=== PATIENT | male | born 1995 | race Caucasian/White ===

== ENCOUNTER 2018-02-15 13:30 | Emergency (ER) | payer OTHER ==
[2018-02-15 13:38] VITALS: BP 136/85
--- NOTE | 2018-02-15 14:07 | RADIOLOGY REPORT (SQ) ---
EXAM DESCRIPTION: HAND LEFT 3 VIEWS COMPLETED DATE/TIME: 02/15/2018 1:49 pm REASON FOR STUDY: left hand COMPARISON: None. EXAM PARAMETERS: NUMBER OF VIEWS: Three views. TECHNIQUE: AP, lateral and oblique radiographic images acquired of the left hand. LIMITATIONS: None. FINDINGS: MINERALIZATION: Normal. BONES: Crush injury distal tuft, 3rd finger distal phalanx. JOINTS: No effusions. SOFT TISSUES: Laceration with radiopaque debris, dorsal aspect of the 3rd finger at the DIP joint. OTHER: No other significant finding. IMPRESSION: Laceration with debris, dorsal aspect 3rd finger at the DIP joint. Crush injury with tuft fracture, 3rd finger distal phalanx tuft TECHNICAL DOCUMENTATION: JOB ID: [id number] [employer]- All Rights Reserved Reading location - IP/workstation name: [email or web address]
[2018-02-15] MEDS ORDERED: AMPICILLIN SOD/SULBACTAM 3 GM VIAL IV ONE (14:50)
--- NOTE | 2018-02-15 14:51 | ER Document Report ---
ED Medical Screen (RME) - General Chief Complaint: Hand Injury Stated Complaint: LEFT FINGER PAIN Time Seen by Provider: 02/15/18 14:46 TRAVEL OUTSIDE OF THE [place]. IN LAST 30 DAYS: No - HPI Notes: 02/15/18 14:50 Laceration smashed finger between 2 rocks - Related Data Allergies/Adverse Reactions: No Known Allergies Allergy (Unverified 02/15/18 13:31) Past Medical History - Social History Chew tobacco use (# tins/day): No Frequency of alcohol use: None Drug Abuse: None Renal/ Medical History: Denies: Hx Peritoneal Dialysis Review of Systems - Review of Systems Skin: Other - Crush injury Physical Exam - Vital signs Vitals: Temp Pulse Resp BP Pulse Ox 97.6 F 64 16 136/85 H 99 02/15/18 13:37 02/15/18 13:37 02/15/18 13:37 02/15/18 13:37 02/15/18 13:37 - Respiratory Respiratory status: No respiratory distress Chest status: Nontender Breath sounds: Normal Chest palpation: Normal Course - Vital Signs Vital signs: Temp Pulse Resp BP Pulse Ox 97.6 F 64 16 136/85 H 99 02/15/18 13:37 02/15/18 13:37 02/15/18 13:37 02/15/18 13:37 02/15/18 13:37
[2018-02-15] MEDS ORDERED: LIDOCAINE 2% VISCOUS SOLN 20 ML UDCUP PO ONE (15:07)
[2018-02-15] MEDS ORDERED: LIDOCAINE 2% INJ (20 MG/ML) 20 ML MDV INJ ONE ×2 (15:15→15:24)
--- NOTE | 2018-02-15 15:23 | ER Document Report ---
ED General - General Mode of Arrival: Ambulatory Information source: Patient TRAVEL OUTSIDE OF THE [place]. IN LAST 30 DAYS: No <FABIAN CHAN - Last Filed: 02/16/18 01:18> <SASCHA GEORGES - Last Filed: 02/16/18 14:32> - General Chief Complaint: Hand Injury Stated Complaint: LEFT FINGER PAIN Time Seen by Provider: 02/15/18 14:46 Notes: Patient is a 22-year-old male presenting to the emergency department complaining of left third digit pain and a laceration onset today. Patient states he was lifting cement blocks while at work and one slipped and crushed his left 3rd digit. Patient is right handed. Patient's last tetanus was approximately fall 2014. (FABIAN CHAN) - Related Data Allergies/Adverse Reactions: No Known Allergies Allergy (Unverified 02/15/18 13:31) Past Medical History - General Information source: Patient - Social History Smoking Status: Current Every Day Smoker Chew tobacco use (# tins/day): No Frequency of alcohol use: None Drug Abuse: None Family History: Reviewed & Not Pertinent Patient has suicidal ideation: No Patient has homicidal ideation: No <FABIAN CHAN - Last Filed: 02/16/18 01:18> Review of Systems - Review of Systems Constitutional: No symptoms reported EENT: No symptoms reported Cardiovascular: No symptoms reported Respiratory: No symptoms reported Gastrointestinal: No symptoms reported Genitourinary: No symptoms reported Male Genitourinary: No symptoms reported Musculoskeletal: See HPI Skin: See HPI Hematologic/Lymphatic: No symptoms reported Neurological/Psychological: No symptoms reported -: Yes All other systems reviewed and negative <FABIAN CHAN - Last Filed: 02/16/18 01:18> Physical Exam <FABIAN CHAN - Last Filed: 02/16/18 01:18> <SASCHA GEORGES - Last Filed: 02/16/18 14:32> - Vital signs Vitals: Temp Pulse Resp BP Pulse Ox 97.6 F 64 16 136/85 H 99 02/15/18 13:37 02/15/18 13:37 02/15/18 13:37 02/15/18 13:37 02/15/18 13:37 - Notes Notes: GENERAL: Alert, interacts well. No acute distress. HEAD: Normocephalic, atraumatic. EYES: Pupils equal, round, and reactive to light. Extraocular movements intact. ENT: Oral mucosa moist, tongue midline. NECK: Full range of motion. Supple. Trachea midline. LUNGS: No respiratory distress. EXTREMITIES: Moves all 4 extremities spontaneously. 2in jagged laceration to the dorsal aspect of left third digit from nail bed to the PIP joint,tendon disruption on dorsal aspect. 1/2in jagged laceration on the volar aspect to the left 3rd digit, near DIP joint. Sensations grossly intact. NEUROLOGICAL: Alert and oriented x3. Normal speech. PSYCH: Normal affect, normal mood. SKIN: Warm, dry. (FABIAN CHAN) Course - Laboratory Result Diagrams: 02/15/18 15:27 02/15/18 15:27 - EKG Interpretation by Pa EKG shows normal: Sinus rhythm Rate: Normal - 60 bpm Rhythm: NSR <FABIAN CHAN - Last Filed: 02/16/18 01:18> - Laboratory Result Diagrams: 02/15/18 15:27 02/15/18 15:27 <SASCHA GEORGES - Last Filed: 02/16/18 14:32> - Re-evaluation Re-evalutation: 02/15/18 15:[address] Valverde who states he will come and evaluate the patient. Advised to give patient antibiotics and place 3rd digit in wet saline gauze. 02/15/18 15:30 Began to inject lidocaine to properly soak the left third digit. (FABIAN CHAN) 02/15/18 17:04 Dr. Valverde evaluated patient was going to bring him into the OR for washout and pinning the patient had eaten at noon today so surgery will be deferred to tomorrow. He advised to provide patient 10 days of Augmentin and patient is a follow-up at surgical center at approximately 3 PM tomorrow. (SASCHA GEORGES) - Vital Signs Vital signs: Temp Pulse Resp BP Pulse Ox 97.6 F 64 16 136/85 H 99 02/15/18 13:37 02/15/18 13:37 02/15/18 13:37 02/15/18 13:37 02/15/18 13:37 - Laboratory Laboratory results interpreted by me: 09/24/18 09/24/18 15:27 15:27 WBC 12.9 H Seg Neutrophils % 85.4 H Lymphocytes % 7.5 L Absolute Neutrophils 11.0 H Carbon Dioxide 31 H - EKG Interpretation by Me Additional EKG results interpreted by me: 02/15/18 17:20 Performed at 1716. Rate 60. Normal sinus rhythm. Normal intervals. (FABIAN CHAN) Discharge <FABIAN CHAN - Last Filed: 02/16/18 01:18> <SASCHA GEORGES - Last Filed: 02/16/18 14:32> - Discharge Clinical Impression: Crushed finger, distal Qualifiers: Encounter type: initial encounter Qualified Code(s): S67.10XA - Crushing injury of unspecified finger(s), initial encounter Condition: Fair Disposition: HOME, SELF-CARE Additional Instructions: Please follow-up at surgical center tomorrow per Dr. balderrama's directions. Please start taking antibiotics provided tomorrow morning. Scribe Attestation: 02/16/18 14:32 I personally performed the services described in the documentation, reviewed and edited the documentation which was dictated to the scribe in my presence, and it accurately records my words and actions. (SASCHA GEORGES)
[2018-02-15] MEDS ORDERED: OXYCODONE-ACETAMINOPHEN 5-325 MG TABLET PO ONE (15:25)
[2018-02-15 15:41] LABS: ABSOLUTE MONOCYTES (AUTO) 0.9 10^3/uL (0.1-1.4); BASOPHILS % (AUTO) 0.2 % (0-2); EOSINOPHILS % (AUTO) 0.2 % (0-6); HEMATOCRIT 43.9 % (37.9-51.0); HEMOGLOBIN 14.9 g/dL (13.5-17.0); LYMPHOCYTES % (AUTO) 7.5 % (13-45); MEAN CORPUSCULAR HEMOGLOBIN 30.3 pg (27.0-33.4); MEAN CORPUSCULAR HGB CONC 33.9 g/dL (32.0-36.0); MEAN CORPUSCULAR VOLUME 89 fl (80-97); MONOCYTES % (AUTO) 6.7 % (3-13); PLATELET COUNT 164 10^3/uL (150-450); RED BLOOD COUNT 4.91 10^6/uL (4.35-5.55); SEGMENTED NEUTROPHILS % (AUTO) 85.4 % (42-78); TOTAL CELLS COUNTED % (AUTO) 100 %; WHITE BLOOD COUNT 12.9 10^3/uL (4.0-10.5)
[2018-02-15 16:01] LABS: ANION GAP 7 (5-19); BLOOD UREA NITROGEN 14 mg/dL (7-20); CALCIUM 9.4 mg/dL (8.4-10.2); CARBON DIOXIDE 31 mmol/L (22-30); CHLORIDE 99 mmol/L (98-107); GLUCOSE 86 mg/dL (75-110); POTASSIUM 3.7 mmol/L (3.6-5.0)
[2018-02-15] MEDS ORDERED: HYDROCODONE/ACETAMINOPHEN 5-325 MG (6 TAB/ER DISP) PO PRN (17:07)
--- NOTE | 2018-02-15 17:13 | PDOC H&P ---
History of Present Illness Patient complains of: Left middle finger injury History of Present Illness: WENDY MUNOZ is a 22 year old male who was working when he sustained a crush injury to his left middle finger when a cinder block fell earlier this afternoon. Patient had notable pain and bleeding and a wound. He was brought to emergency room where the area was anesthetized and irrigated. Patient states the pain was worse with motion. Did have some numbness on the tip of the finger. States pain is worse with motion. Current pain 2/10. Social History Smoking Status: Current Every Day Smoker Family History Parental Family History Reviewed: No Children Family History Reviewed: No Sibling(s) Family History Reviewed.: No Medication/Allergy Home Medications: Amox Tr/Potassium Clavulanate [Augmentin 875-125 Tablet] 1 tab PO BID 10 Days tablet 02/15/18 Allergies/Adverse Reactions: No Known Allergies Allergy (Unverified 02/15/18 13:31) Review of Systems Constitutional: ABSENT: chills, fever(s), headache(s), weight gain, weight loss Eyes: ABSENT: visual disturbances Ears: ABSENT: hearing changes Cardiovascular: ABSENT: chest pain, dyspnea on exertion, edema, orthropnea, palpitations Respiratory: ABSENT: cough, hemoptysis Gastrointestinal: ABSENT: abdominal pain, constipation, diarrhea, hematemesis, hematochezia, nausea, vomiting Genitourinary: ABSENT: dysuria, hematuria Musculoskeletal: PRESENT: as per HPI Integumentary: ABSENT: rash, wounds Neurological: ABSENT: abnormal gait, abnormal speech, confusion, dizziness, focal weakness, syncope Psychiatric: ABSENT: anxiety, depression, homidical ideation, suicidal ideation Endocrine: ABSENT: cold intolerance, heat intolerance, menstrual abnormalities, polydipsia, polyuria Hematologic/Lymphatic: ABSENT: easy bleeding, easy bruising, lymphadenopathy Physical Exam Vital Signs: Temp Pulse Resp BP Pulse Ox 97.6 F 64 16 136/85 H 99 02/15/18 13:37 02/15/18 13:37 02/15/18 13:37 02/15/18 13:37 02/15/18 13:37 Intake & Output 02/14/18 02/15/18 02/16/18 06:59 06:59 06:59 Weight 81.3 kg General appearance: PRESENT: no acute distress, well-developed, well-nourished Head exam: PRESENT: atraumatic, normocephalic Eye exam: PRESENT: conjunctiva pink, EOMI, PERRLA. ABSENT: scleral icterus Ear exam: PRESENT: normal external ear exam Mouth exam: PRESENT: moist, tongue midline Neck exam: PRESENT: full ROM. ABSENT: carotid bruit, JVD, lymphadenopathy, thyromegaly Cardiovascular exam: PRESENT: RRR. ABSENT: diastolic murmur, rubs, systolic murmur Pulses: PRESENT: normal dorsalis pedis pul, +2 pedal pulses bilateral Vascular exam: PRESENT: normal capillary refill GI/Abdominal exam: PRESENT: normal bowel sounds, soft. ABSENT: distended, guarding, mass, organolmegaly, rebound, tenderness Rectal exam: PRESENT: deferred Musculoskeletal exam: PRESENT: other - Left index finger: Wound along the volar aspect of the DIP joint. Dorsal wound along the DIP joint with evidence of extensor tendon involvement. Patient lacks extension of the DIP joint. Intact flexion of the DIP joint. Given original digit block unable to assess neurovascular status. Cap refill less than 2 seconds. No evidence of exposed bone. No gross contamination appreciated. Neurological exam: PRESENT: alert, awake, oriented to person, oriented to place , oriented to time, oriented to situation, CN II-XII grossly intact. ABSENT: motor sensory deficit Psychiatric exam: PRESENT: appropriate affect, normal mood. ABSENT: homicidal ideation, suicidal ideation Skin exam: PRESENT: dry, intact, warm. ABSENT: cyanosis, rash Results Laboratory Results: 02/15/18 15:27 02/15/18 15:27 02/15/18 02/15/18 15:27 15:27 WBC 12.9 H RBC 4.91 Hgb 14.9 Hct 43.9 MCV 89 MCH 30.3 MCHC 33.9 RDW 13.0 Plt Count 164 Seg Neutrophils % 85.4 H Lymphocytes % 7.5 L Monocytes % 6.7 Eosinophils % 0.2 Basophils % 0.2 Absolute Neutrophils 11.0 H Absolute Lymphocytes 1.0 Absolute Monocytes 0.9 Absolute Eosinophils 0.0 Absolute Basophils 0.0 Sodium 137.0 Potassium 3.7 Chloride 99 Carbon Dioxide 31 H Anion Gap 7 BUN 14 Creatinine 0.81 Est GFR ( Amer) > 60 Est GFR (Non-Af Amer) > 60 Glucose 86 Calcium 9.4 Impressions: Hand X-Ray 02/15/18 13:33 IMPRESSION: Laceration with debris, dorsal aspect 3rd finger at the DIP joint. Crush injury with tuft fracture, 3rd finger distal phalanx tuft Status: Image reviewed by me - I have reviewed patient's radiographs which demonstrate soft tissue injury, tuft fracture. There is opaque fragments consistent with foreign bodies. Assessment & Plan - Diagnosis (1) Extensor tendon laceration of finger with open wound Qualifiers: Encounter type: initial encounter Qualified Code(s): S56.429A - Laceration of extensor muscle, fascia and tendon of unspecified finger at forearm level, initial encounter; S61.209A - Unspecified open wound of unspecified finger without damage to nail, initial encounter; S61.209A - Unspecified open wound of unspecified finger without damage to nail, initial encounter Is this a current diagnosis for this admission?: Yes (2) Crushed finger, distal Qualifiers: Encounter type: initial encounter Qualified Code(s): S67.10XA - Crushing injury of unspecified finger(s), initial encounter Is this a current diagnosis for this admission?: Yes Plan: Patient sustained a crush injury to the left middle finger. Given the involvement of the extensor mechanism and extensor lag I have recommended operative intervention which includes irrigation debridement of the left middle finger with extensor tendon repair transarticular pinning of the DIP joint. Risks and benefits of the operative procedure have been explained to the patient. Patient has been started on Unasyn and will receive p.o. antibiotics. We will proceed with operative intervention within the next 24 hours.
--- NOTE | 2018-02-15 17:36 | RADIOLOGY REPORT (SQ) ---
EXAM DESCRIPTION: CHEST SINGLE VIEW COMPLETED DATE/TIME: 02/15/2018 5:27 pm REASON FOR STUDY: pre op COMPARISON: None. EXAM PARAMETERS: NUMBER OF VIEWS: One view. TECHNIQUE: Single frontal radiographic view of the chest acquired. RADIATION DOSE: NA LIMITATIONS: None. FINDINGS: LUNGS AND PLEURA: No opacities, masses or pneumothorax. No pleural effusion. MEDIASTINUM AND HILAR STRUCTURES: No masses. Contour normal. HEART AND VASCULAR STRUCTURES: Heart normal in size. Normal vasculature. BONES: No acute findings. HARDWARE: None in the chest. OTHER: No other significant finding. IMPRESSION: NO ACUTE RADIOGRAPHIC FINDING IN THE CHEST. TECHNICAL DOCUMENTATION: JOB ID: [id number] [employer]- All Rights Reserved Reading location - IP/workstation name: [email or web address]
--- NOTE | 2018-02-15 21:57 | EKG REPORT ---
SEVERITY:- NORMAL ECG - SINUS RHYTHM ST ELEV, PROBABLE NORMAL EARLY REPOL PATTERN : Confirmed by: Rebecca Michel MD 15-Feb-2018 21:56:22
== END 2018-02-15 17:39 | disposition home or self-care (01) ==
LOC: ER 13:30
DX: S67.10XA Crushing injury of unspecified finger(s), initial encounter (principal); S69.92XA Unspecified injury of left wrist, hand and finger(s), initial encounter; W23.0XXA Caught, crushed, jammed, or pinched between moving objects, initial encounter; Y93.H3 Activity, building and construction; Y99.0 Civilian activity done for income or pay; F17.200 Nicotine dependence, unspecified, uncomplicated
CPT/HCPCS: 93005; 99284; 96374; 36415; 85025; 80048; 71045; 73130; 93010; J3490; J0295

== ENCOUNTER 2018-02-16 15:29 | Day surgery (SDC) | payer MEDICAID, OTHER ==
[~2018-02-16 15:29] MED LIST: DEXAMETHASONE SOD PHOSPHATE INJ 4 MG/1 ML VIAL ONE; FENTANYL CITRATE INJ/PF 100 MCG/2 ML AMPUL ONE; MIDAZOLAM 2 MG/2 ML INJ ONE; ONDANSETRON HCL INJ/PF 4 MG/2 ML SDV ONE; PROPOFOL INJ 200 MG/20 ML VIAL IV ONE
[2018-02-16] MEDS ORDERED: BUPIVACAINE HCL 0.5 % INJ/PF 30 ML SDV ONE (17:39)
[2018-02-16] MEDS ORDERED: CEFAZOLIN 1 GM/D5W RTU 0 GM/0 ML RTUPB IV ONE (18:24)
[2018-02-16] MEDS ORDERED: CEFAZOLIN 2 GM/D5W RTU 2 GM/50 ML RTUPB IV ONE (18:25)
[2018-02-16] MEDS ORDERED: LIDOCAINE 1% INJ-PF (10 MG/ML) 30 ML SDV ONE (18:51)
[2018-02-16] MEDS ORDERED: PROPOFOL INJ 200 MG/20 ML VIAL IV ONE (18:59)
[2018-02-16] MEDS ORDERED: DIPHENHYDRAMINE HCL 50 MG/ML VIAL IV PRN (19:11)
[2018-02-16] MEDS ORDERED: ONDANSETRON HCL INJ/PF 4 MG/2 ML SDV IV PRN ×2 (19:11→19:41)
[2018-02-16] MEDS ORDERED: MEPERIDINE HCL/PF INJ 25 MG/1 ML DISP.SYRIN IV PRN (19:11)
[2018-02-16] MEDS ORDERED: PROMETHAZINE HCL INJ 25 MG/1 ML VIAL IV PRN ×2 (19:11)
[2018-02-16] MEDS ORDERED: MORPHINE SULFATE 10 MG/ML INJ IV PRN (19:11)
[2018-02-16] MEDS ORDERED: FENTANYL CITRATE INJ/PF 100 MCG/2 ML AMPUL IV PRN ×3 (19:11)
[2018-02-16] MEDS ORDERED: HYDROMORPHONE HCL INJ/PF 2 MG/ML AMPULE IV PRN (19:41)
[2018-02-16] MEDS ORDERED: OXYCODONE-ACETAMINOPHEN 5-325 MG TABLET PO PRN (19:41)
--- NOTE | 2018-02-16 19:41 | Discharge Summary ---
Discharge Summary (SDC) - Discharge Final Diagnosis: Open mallet injury left middle finger Date of Surgery: 02/16/18 Discharge Date: 02/16/18 Condition: Good Treatment or Instructions: Schedule Follow Up w/ Dr. Suleman Valverde @ [facility] for [facility] to be seen in 10-14 days or as scheduled [place]: [place]: [place]: May remove dressing on postop day #3, keep incision covered and dry. Ice and elevate May begin finger range of motion at the proximal interphalangeal joint Stool softener of choice when on pain medication. Prescriptions: Ketorolac Tromethamine [Toradol 10 mg Tablet] 10 mg PO Q8HP PRN #12 tablet PRN Reason: Discharge Diet: As Tolerated Respiratory Treatments at Home: Deep Breathing/Coughing Discharge Activity: No Lifting Over 10 Pounds, No Lifting/Push/Pulling Report the Following to Your Physician Immediately: Fever over 101 Degrees, Unusual Bleeding, Redness, Swelling, Warmth
--- NOTE | 2018-02-16 19:47 | Operative Report ---
Operative Report DATE OF SURGERY: 02/16/18 PREOPERATIVE DIAGNOSIS: Left middle finger open mallet digit POSTOPERATIVE DIAGNOSIS: Same+ Partial FDP Laceration+small shear fracture middle phalanx head OPERATION: 1. Irrigation debridement left middle finger DIP joint with debridement, skin soft tissue and bone. 2. transarticular pinning DIP joint. 3. repair of Extensor tendon. 4. repair partial FDP laceration Zone I SURGEON: ELBA QUIROS ANESTHESIA: LMAC COMPLICATIONS: None ESTIMATED BLOOD LOSS: Minimal PROCEDURE: Indication for above procedure: WENDY MUNOZ is a 22 year old male who was working when he sustained a crush injury to his left middle finger when a cinder block fell earlier this afternoon. Patient had notable pain and bleeding and a wound. He was brought to emergency room where the area was anesthetized and irrigated. At that point we discussed treatment options and decision was made to proceed with operative intervention within 24 hours. Risks and benefits of the operative procedure were explained patient verbalized understanding consented for the procedure. Procedure In Detail: Patient was seen and evaluated in the preoperative holding area. The left upper extremity was initialized and marked. Patient received 2g of Ancef IV for bacterial prophylaxis. Patient was taken back to the operative room where transferred to the operative table. Once they were adequately anesthetized a nonsterile tourniquet was placed on the upper extremity. A surgical team debriefing was performed ensuring all instrumentation was available, the surgical procedure was discussed with possible concerns reviewed. A digital block was performed utilizing 10 mL of 1% lidocaine without epinephrine. The upper extremity was prepped with Betadine and draped in a sterile fashion. A timeout was done identifying correct patient, procedure and extremity everyone in attendance agree with this and verbalized no concerns. Digital tourniquet was placed. Patient's dorsal wound was open. The area was copiously irrigated with normal saline. Any nonviable tissue or contamination was excised. There is a small shear fragment along the radial condyle of the middle phalanx head at the DIP joint. This was excised. The DIP joint was copiously irrigated with normal saline. The extensor mechanism was disrupted and avulsed partially from its insertion only distal phalanx. Via bone tunnels a 3-0 Vicryl suture brought the extensor mechanism back to its insertion point. A longitudinal split within the extensor tendon was then reapproximated with 3-0 Vicryl suture. The wound was once again irrigated with normal saline. I then placed a 0.045 transarticular K wire along the DIP joint. C-arm fluoroscopy was obtained confirming appropriate placement of the K wire. The wound was then closed with interrupted 4-0 nylon suture. There was a star-shaped wound along the volar aspect of the DIP joint along the pulp. There was contamination on the skin edges and nonviable skin edges. The skin edges were then debrided. The wound was copiously irrigated with normal saline. Exploration of the volar aspect demonstrate intact distal aspect of the radial and ulnar neurovascular bundles however there was a 30% longitudinal laceration of the FDP tendon. I then took the proximal stump and reapproximated it to the intact distal stump with 40 Fiber Loop. The area was then copiously irrigated with normal saline once again. Skin was closed with interrupted 4-0 nylon suture. Wound was dressed with Adaptic and a loosely applied Sam and Coban. The digital tourniquet was removed patient had good peripheral perfusion. Sponge counts, instrument counts, needle counts counts were correct. Patient was then awoken from anesthesia. Transferred from the operating room table to the operating room stretcher. There was no intraoperative complications patient tolerated procedure well stable to PACU. Postoperative plan: Patient will follow-up as scheduled for wound check. They will call with any questions or concerns. Patient may begin PIP joint range of motion immediately.
--- NOTE | 2018-02-16 19:51 | RADIOLOGY REPORT (SQ) ---
EXAM DESCRIPTION: NO CHG FLUORO; FINGER LEFT COMPLETED DATE/TIME: 02/16/2018 7:36 pm REASON FOR STUDY: LT FINGER PERC PINNING COMPARISON: None. FLUOROSCOPY TIME: 12 seconds 2 Images saved to PACS LIMITATIONS: None. PROCEDURE: Percutaneous pinning of the 3rd digit. FINDINGS: 2 images in fluoro document placement pin through the distal phalanx into the middle phala nx. IMPRESSION: Percutaneous pinning. Refer to operative note for further information. COMMENT: PQRS 6045F: Fluoroscopy time of the procedure is documented in the report. TECHNICAL DOCUMENTATION: JOB ID: [id number] [employer]- All Rights Reserved Reading location - IP/workstation name: [email or web address]
--- NOTE | 2018-02-16 19:51 | RADIOLOGY REPORT (SQ) ---
EXAM DESCRIPTION: NO CHG FLUORO; FINGER LEFT COMPLETED DATE/TIME: 02/16/2018 7:36 pm REASON FOR STUDY: LT FINGER PERC PINNING COMPARISON: None. FLUOROSCOPY TIME: 12 seconds 2 Images saved to PACS LIMITATIONS: None. PROCEDURE: Percutaneous pinning of the 3rd digit. FINDINGS: 2 images in fluoro document placement pin through the distal phalanx into the middle phala nx. IMPRESSION: Percutaneous pinning. Refer to operative note for further information. COMMENT: PQRS 6045F: Fluoroscopy time of the procedure is documented in the report. TECHNICAL DOCUMENTATION: JOB ID: [id number] [employer]- All Rights Reserved Reading location - IP/workstation name: [email or web address]
[2018-02-16 21:26] VITALS: BP 130/75
== END 2018-02-16 21:45 | disposition home or self-care (01) ==
LOC: OROUT 15:29 → 2S 20:27 → OROUT 21:45
PROVIDERS: ATTEND Orthopaedic Surgery
DX: S56.424A Laceration of extensor muscle, fascia and tendon of left middle finger at forearm level, initial encounter (principal); S61.213A Laceration without foreign body of left middle finger without damage to nail, initial encounter; S67.193A Crushing injury of left middle finger, initial encounter; S62.603A Fracture of unspecified phalanx of left middle finger, initial encounter for closed fracture; W20.8XXA Other cause of strike by thrown, projected or falling object, initial encounter; M20.012 Mallet finger of left finger(s); F17.210 Nicotine dependence, cigarettes, uncomplicated
CPT/HCPCS: 73140; 26740; 26418; 26350; C1713; J2250; J1100; J3010; J3490; J2405; J2704; J0690; 01830

== ENCOUNTER 2018-05-28 18:24 | Emergency (ER) | payer MEDICAID ==
[2018-05-28] MEDS ORDERED: DIPH/PERTUSS(ACELL)/TETANUS VAC/PF 0.5 ML SYR (>=10YO) IM ONE (18:57)
[2018-05-28] MEDS ORDERED: LIDOCAINE 0.5%/EPINEPHRINE INJ 50 ML VIAL INJ ONE (18:57)
[2018-05-28 19:00] VITALS: BP 112/61
--- NOTE | 2018-05-28 19:03 | ER Document Report ---
HPI - HPI Patient complains to provider of: scalp laceration Time Seen by Provider: 05/28/18 18:53 Onset: This afternoon Onset/Duration: Sudden Quality of pain: Achy Pain Level: 3 Context: Patient presents to the emergency department with complaints of scalp laceration . Patient reports he was carrying wood over his head when it fell and hit him in the head. He denies change in LOC. Denies nausea vomiting. Reports he thinks his tetanus was in 2014 but cannot say for sure. No other complaints. Patient alert and oriented answering all questions appropriately no obvious neuro deficits. Associated Symptoms: None Exacerbated by: Denies Relieved by: Denies Similar symptoms previously: No Recently seen / treated by doctor: No - CONSTITUTIONAL Constitutional: DENIES: Fever, Chills - REPRODUCTIVE Reproductive: DENIES: : Past Medical History - General Information source: Patient - Social History Smoking Status: Current Every Day Smoker Cigarette use (# per day): Yes Frequency of alcohol use: None Drug Abuse: None Family History: Reviewed & Not Pertinent Patient has suicidal ideation: No Patient has homicidal ideation: No - Medical History Medical History: Negative Renal/ Medical History: Denies: Hx Peritoneal Dialysis Past Surgical History: Reports: Hx Orthopedic Surgery - 3rd finger on left Vertical Provider Document - CONSTITUTIONAL Agree With Documented VS: Yes Exam Limitations: No Limitations General Appearance: WD/WN, No Apparent Distress - INFECTION CONTROL TRAVEL OUTSIDE OF THE [place].S. IN LAST 30 DAYS: No - HEENT HEENT: Normocephalic, PERRLA. negative: Conjuctival Injection - NECK Neck: Supple - RESPIRATORY Respiratory: No Respiratory Distress - CARDIOVASCULAR Cardiovascular: Regular Rate - MUSCULOSKELETAL/EXTREMETIES Musculoskeletal/Extremeties: YAMILA DEL REAL - NEURO Level of Consciousness: Awake, Alert, Appropriate Motor/Sensory: No Motor Deficit - DERM Integumentary: Warm, Dry, Laceration Course - Re-evaluation Re-evalutation: 05/28/18 19:51 pt tolerated procedure well but reported scalp burning after yokasta. Percocet provided he reports his is driving him home. Patient instructed on signs and symptoms of infection and instructed to return to ED for any symptoms. He verbalized understanding. Dictation of this chart was performed using voice recognition software; therefore, there may be some unintended grammatical errors. Procedures - Laceration/Wound Repair scalp Wound length (cm): 4 Wound's Depth, Shape: Superficial, Linear Laceration pre-procedure: Shur-Clens applied Wound explored: Clean, No foreign body removed Irrigated w/ Saline (mLs): 500 - scalp washed in sink Wound Repaired With: Yokasta Number of Sutures: 3 Layer Closure?: No Post-procedure NV exam normal: No Complications: No Adult Head Front/Back picture: 1 - 4 cm laceration closed with 3 yokasta, pt tolerated well. Discharge - Discharge Clinical Impression: Scalp laceration Qualifiers: Encounter type: initial encounter Qualified Code(s): S01.01XA - Laceration without foreign body of scalp, initial encounter Condition: Stable Disposition: HOME, SELF-CARE Instructions: Scalp Laceration (OM), Care of Stapled Wounds (OM), Tetanus Immunization Given ([facility]) Additional Instructions: *You have been treated for a scalp laceration *Monitor the site for signs of infection such as increasing pain, redness, swelling, warmth *Wash your hair with gentle shampoo *Follow up here in 5 days for staple removal *Return to ED for signs of infection, worsening condition, changes, needs
[2018-05-28] MEDS ORDERED: OXYCODONE-ACETAMINOPHEN 5-325 MG TABLET PO ONE (19:16)
== END 2018-05-28 19:26 | disposition home or self-care (01) ==
LOC: ER 18:24
DX: S01.01XA Laceration without foreign body of scalp, initial encounter (principal); W20.8XXA Other cause of strike by thrown, projected or falling object, initial encounter; Y93.89 Activity, other specified; F17.210 Nicotine dependence, cigarettes, uncomplicated
CPT/HCPCS: 90471; 90715; 99283

== ENCOUNTER 2018-06-02 15:54 | Emergency (ER) | payer MEDICAID ==
--- NOTE | 2018-06-02 16:08 | ER Document Report ---
HPI - HPI Time Seen by Provider: 06/02/18 16:07 Pain Level: 1 Notes: Patient is an otherwise healthy 22-year-old male presenting with chief complaint of request for staple removal. Patient reports he had yokasta from place to his head 5 days ago. Denies any other complaints. - REPRODUCTIVE Reproductive: DENIES: : Past Medical History - General Information source: Patient - Social History Smoking Status: Never Smoker Frequency of alcohol use: None Drug Abuse: None Family History: Reviewed & Not Pertinent - Medical History Medical History: Negative - Past Medical History Cardiac Medical History: Denies: Hx Coronary Artery Disease, Hx Heart Attack, Hx Hypertension Pulmonary Medical History: Denies: Hx Asthma, Hx Bronchitis, Hx COPD, Hx Pneumonia Neurological Medical History: Denies: Hx Cerebrovascular Accident, Hx Seizures Renal/ Medical History: Denies: Hx Peritoneal Dialysis Musculoskeletal Medical History: Denies Hx Arthritis Past Surgical History: Reports: Hx Orthopedic Surgery - 3rd finger on left - Immunizations Hx Diphtheria, Pertussis, Tetanus Vaccination: Yes Vertical Provider Document - CONSTITUTIONAL Notes: PHYSICAL EXAMINATION: GENERAL: Well-appearing, well-nourished and in no acute distress. HEAD: Atraumatic, normocephalic. 3 yokasta noted to right frontal area approximately 4 cm from hairline. Wound is well approximated with no surrounding erythema. EYES: Pupils equal round extraocular movements intact, conjunctiva are normal. ENT: Nares patent NECK: Normal range of motion LUNGS: No respiratory distress Musculoskeletal: Normal range of motion NEUROLOGICAL: Normal speech, normal gait. PSYCH: Normal mood, normal affect. SKIN: Warm, Dry, normal turgor, no rashes or lesions noted. - INFECTION CONTROL TRAVEL OUTSIDE OF THE [place] IN LAST 30 DAYS: No Course - Re-evaluation Re-evalutation: Yokasta were removed with no complications. Patient discharged home in stable condition. Discharge - Discharge Clinical Impression: Removal of staple Condition: Stable Disposition: HOME, SELF-CARE Additional Instructions: Staple Removal Your yokasta have been removed. Please follow the care instructions the doctor/nurse practitioner has outlined for you. Unless instructed otherwise, you may get the wound wet and you do not need to continue bandaging it. You may begin to return to regular activities, but remember that it takes the inner tissues up to six weeks to fully heal. Therefore, do not subject the wound to significant forces or stress as it may re-open. See the doctor immediately if any signs of infection occur such as swelling, redness, drainage of pus, increasing tenderness, red streaks, tender lumps in the armpit or groin above the laceration, or fever. Unless you are instructed otherwise, you should not need to be seen again for any further evaluation of your wound.
== END 2018-06-02 16:11 | disposition home or self-care (01) ==
LOC: ER 15:54
DX: Z48.02 Encounter for removal of sutures (principal)